=== PATIENT | female | born 1955 | race Caucasian/White ===

== ENCOUNTER 2024-02-28 06:18 | Emergency (ER) | payer BC, OTHER ==
[~2024-02-28] VITALS: Ht 160 cm; Wt 72.6 kg
[2024-02-28] MEDS ORDERED: LISINOPRIL (20MG) 20 MG TABLET ONE (07:03)
[2024-02-28] MEDS ORDERED: KETOROLAC TROMETHAMINE 15 MG/ML VIAL ONE (07:03)
[2024-02-28] MEDS ORDERED: ACETAMINOPHEN ES 500 MG TABLET ONE (07:03)
[2024-02-28] MEDS: KETOROLAC TROMETHAMINE 15 MG/ML VIAL IM ONE (07:13)
[2024-02-28] MEDS: ACETAMINOPHEN ES 500 MG TABLET PO ONE (07:13)
[2024-02-28] MEDS: LISINOPRIL (10MG) 10 MG TABLET PO SCH (09:40)
[2024-02-28 11:15] LABS: BASOPHILS # (AUTO) 0.1 K/uL (0.0-0.2); EOSINOPHILS # (AUTO) 0.1 K/uL (0.0-0.7); EOSINOPHILS % (AUTO) 1.6 % (0.0-6.0); HEMATOCRIT 34 % (33-45); HEMOGLOBIN 11.1 g/dL (11.5-14.8); LYMPHOCYTES % (AUTO) 23.5 % (20.0-44.0); MEAN CORPUSCULAR HEMOGLOBIN 28 PG (26.0-33.0); MEAN CORPUSCULAR HGB CONC 32 g/dl (31.0-36.0); MEAN CORPUSCULAR VOLUME 88 fL (82-100); MONOCYTES # (AUTO) 0.5 K/uL (0.1-1.30); MONOCYTES % (AUTO) 5.3 % (2.0-12.0); NEUTROPHILS # (AUTO) 5.9 K/uL (1.8-8.9); NEUTROPHILS % (AUTO) 68.6 % (43.0-81.0); PLATELET COUNT (AUTO) 441 K/uL (150-450); RED CELL DISTRIBUTION WIDTH 18.7 % (11.5-15.0); WHITE BLOOD COUNT (AUTO) 8.6 K/uL (4.3-11.0)
[2024-02-28 11:28] LABS: ALANINE AMINOTRANSFERASE 19 U/L (12-78); ALBUMIN 2.4 g/dL (3.4-5.0); ALKALINE PHOSPHATASE 119 U/L (46-116); ASPARTATE AMINOTRANSFERASE 28 U/L (15-37); BILIRUBIN,DIRECT 0.2 mg/dL (0.0-0.2); BILIRUBIN,TOTAL 0.5 mg/dL (0.2-1.0); CALCIUM, SERUM 8.8 mg/dL (8.5-10.1); CARBON DIOXIDE 27 mmol/L (21-32); CHLORIDE 105 mmol/L (98-107); CREATININE 1.1 mg/dL (0.6-1.3); GLUCOSE 106 mg/dL (74-106); POTASSIUM 4.6 mmol/L (3.5-5.1); SODIUM SERUM 138 mmol/L (136-145); UREA NITROGEN, BLOOD 19 mg/dL (7-18)
[2024-02-28] MEDS ORDERED: NALOXONE HCL 0.4 MG/ML AMPUL ONE (12:13)
[2024-02-28] MEDS: NALOXONE HCL 0.4 MG/ML AMPUL IV ONE (12:14)
[2024-02-28 12:38] LABS: ALCOHOL, BLOOD < 3 mg/dL (0-10)
[2024-02-28 13:05] LABS: APPEARANCE,URINE CLEAR (CLEAR); BILIRUBIN,URINE NEGATIVE (NEGATIVE); BLOOD, URINE NEGATIVE Ery/uL (NEGATIVE); COLOR,URINE YELLOW (YELLOW); KETONES,URINE NEGATIVE (NEGATIVE); LEUKOCYTE ESTERASE ,URINE NEGATIVE (NEGATIVE); NITRITE, URINE NEGATIVE (NEGATIVE); PH,URINE 5.5 (5.0-8.0); PROTEIN,URINE 2+ mg/dl (NEGATIVE); UGLUCOSE NEGATIVE (NEGATIVE)
[2024-02-28 13:15] LABS: AMPHETAMINE, URINE NEGATIVE (NEGATIVE); BARBITURATE, URINE NEGATIVE (NEGATIVE); BENZODIAZEPINE, URINE NEGATIVE (NEGATIVE); CANNABINOID, URINE NEGATIVE (NEGATIVE); PHENCYCLIDINE SCREEN,URINE NEGATIVE (NEGATIVE)
[2024-02-28 13:21] LABS: COCCAINE, URINE POSITIVE (NEGATIVE); OPIATE, URINE POSITIVE (NEGATIVE)
[2024-02-28 14:01] LABS: ADD URINE CULTURE NO; BACTERIA,URINE 1+ /HPF (None Seen); RBC,URINE 0-2 /HPF (0-2); WBC,URINE NONE SEEN /HPF (0-3)
[2024-02-28 14:02] LABS: SQUAMOUS EPITHELIAL CELL,UR 0-2 /HPF (None Seen)
[2024-02-28] MEDS ORDERED: LISI1TAB55 PO (14:17)
[2024-02-28] MEDS: hydrALAZINE HCL IV 20 MG VIAL IV ONE (14:30)
[2024-02-28 19:09] VITALS: TEMP 98.3
[2024-02-29 00:42] VITALS: BP 141/79; O2SAT 98
== END 2024-02-29 00:42 | disposition home or self-care (01) ==
LOC: ER 06:20
DX: M18.9 Osteoarthritis of first carpometacarpal joint, unspecified (principal); F19.10 Other psychoactive substance abuse, uncomplicated; R41.82 Altered mental status, unspecified; I10 Essential (primary) hypertension; Z60.2 Problems related to living alone; Z59.00 Homelessness unspecified; Z79.899 Other long term (current) drug therapy
CPT/HCPCS: 99285; 96372; 96374; 96375; 73560 ×2; 73030; 73100 ×2; 70450; 85025; 80048; 80076; 81001; 36415; 82962; 80320; 80307; J0360; J2310; J1885; G0480

== ENCOUNTER 2024-03-01 16:41 | Emergency (ER) | payer BC, OTHER ==
[~2024-03-01] VITALS: Ht 152.4 cm; Wt 72.6 kg
[~2024-03-01 16:41] MED LIST: LISI1TAB55 PO
[2024-03-01 18:05] LABS: ALANINE AMINOTRANSFERASE 16 U/L (12-78); ALBUMIN 2.5 g/dL (3.4-5.0); ALCOHOL, BLOOD < 3 mg/dL (0-10); ALKALINE PHOSPHATASE 101 U/L (46-116); ASPARTATE AMINOTRANSFERASE 21 U/L (15-37); BILIRUBIN,DIRECT 0.1 mg/dL (0.0-0.2); BILIRUBIN,TOTAL 0.2 mg/dL (0.2-1.0); CALCIUM, SERUM 8.9 mg/dL (8.5-10.1); CARBON DIOXIDE 25 mmol/L (21-32); CHLORIDE 105 mmol/L (98-107); CREATININE 0.9 mg/dL (0.6-1.3); GLUCOSE 86 mg/dL (74-106); POTASSIUM 4.3 mmol/L (3.5-5.1); SODIUM SERUM 136 mmol/L (136-145); UREA NITROGEN, BLOOD 18 mg/dL (7-18)
[2024-03-01 18:14] LABS: ACETAMINOPHEN 0 ug/ml (10-30); SALICYLATE 2.3 mg/dL (2.8-20.0)
[2024-03-01] MEDS ORDERED: AMLODIPINE BESYLATE 5 MG TABLET ONE (18:31)
[2024-03-01] MEDS: AMLODIPINE BESYLATE 5 MG TABLET PO ONE (18:37)
[2024-03-01 19:40] LABS: APPEARANCE,URINE CLEAR (CLEAR); BILIRUBIN,URINE NEGATIVE (NEGATIVE); BLOOD, URINE NEGATIVE Ery/uL (NEGATIVE); COLOR,URINE YELLOW (YELLOW); KETONES,URINE NEGATIVE (NEGATIVE); LEUKOCYTE ESTERASE ,URINE NEGATIVE (NEGATIVE); NITRITE, URINE NEGATIVE (NEGATIVE); PROTEIN,URINE 1+ mg/dl (NEGATIVE); UGLUCOSE NEGATIVE (NEGATIVE); UROBILINOGEN,URINE 0.2 EU/dL (0.2)
[2024-03-01 19:45] LABS: BASOPHILS # (AUTO) 0.1 K/uL (0.0-0.2); BASOPHILS % (AUTO) 1.1 % (0.0-2.0); EOSINOPHILS # (AUTO) 0.3 K/uL (0.0-0.7); EOSINOPHILS % (AUTO) 3.8 % (0.0-6.0); HEMATOCRIT 32 % (33-45); HEMOGLOBIN 10.5 g/dL (11.5-14.8); LYMPHOCYTES # (AUTO) 2.1 K/uL (0.8-4.8); LYMPHOCYTES % (AUTO) 31.2 % (20.0-44.0); MEAN CORPUSCULAR HEMOGLOBIN 28 PG (26.0-33.0); MEAN CORPUSCULAR HGB CONC 33 g/dl (31.0-36.0); MEAN CORPUSCULAR VOLUME 87 fL (82-100); MONOCYTES # (AUTO) 0.6 K/uL (0.1-1.30); MONOCYTES % (AUTO) 8.8 % (2.0-12.0); NEUTROPHILS # (AUTO) 3.7 K/uL (1.8-8.9); NEUTROPHILS % (AUTO) 55.1 % (43.0-81.0); PLATELET COUNT (AUTO) 373 K/uL (150-450); RED BLOOD CELL COUNT(AUTO) 3.72 MIL/uL (4.0-5.2); RED CELL DISTRIBUTION WIDTH 18.5 % (11.5-15.0); WHITE BLOOD COUNT (AUTO) 6.7 K/uL (4.3-11.0)
[2024-03-01 19:47] LABS: ADD URINE CULTURE YES; BACTERIA,URINE 3+ /HPF (None Seen); RBC,URINE 0-2 /HPF (0-2); SQUAMOUS EPITHELIAL CELL,UR 0-2 /HPF (None Seen); WBC,URINE 0-2 /HPF (0-3)
[2024-03-01 19:53] LABS: AMPHETAMINE, URINE NEGATIVE (NEGATIVE); BARBITURATE, URINE NEGATIVE (NEGATIVE); BENZODIAZEPINE, URINE NEGATIVE (NEGATIVE); CANNABINOID, URINE NEGATIVE (NEGATIVE); OPIATE, URINE NEGATIVE (NEGATIVE); PHENCYCLIDINE SCREEN,URINE NEGATIVE (NEGATIVE)
[2024-03-01 19:54] LABS: COCCAINE, URINE POSITIVE (NEGATIVE)
[2024-03-02] MEDS: AMLODIPINE BESYLATE 5 MG TABLET PO ONE (14:07)
[2024-03-02] MEDS ORDERED: AMLODIPINE BESYLATE 10 MG TABLET ONE (14:08)
[2024-03-02 14:12] VITALS: BP 159/97; TEMP 98.2; O2SAT 97
== END 2024-03-02 14:33 ==
LOC: ER 16:46
DX: R45.851 Suicidal ideations (principal); F14.10 Cocaine abuse, uncomplicated; I10 Essential (primary) hypertension; M06.9 Rheumatoid arthritis, unspecified; G89.29 Other chronic pain; Z60.2 Problems related to living alone; Z20.822 Contact with and (suspected) exposure to COVID-19
CPT/HCPCS: 36415; 80048-TC; 80076-TC; 81001; 85025-TC; 87086-TC; G0480

== ENCOUNTER 2024-05-03 20:31 | Inpatient (IN) | payer BC, MEDICAID, OTHER ==
[~2024-05-03] VITALS: Ht 160 cm; Wt 89.8 kg
[2024-05-03 21:55] LABS: BASOPHILS % (AUTO) 0.7 % (0.0-2.0); EOSINOPHILS # (AUTO) 0.1 K/uL (0.0-0.7); EOSINOPHILS % (AUTO) 1.8 % (0.0-6.0); HEMATOCRIT 30 % (33-45); LYMPHOCYTES # (AUTO) 1.9 K/uL (0.8-4.8); LYMPHOCYTES % (AUTO) 25.9 % (20.0-44.0); MEAN CORPUSCULAR HEMOGLOBIN 29 PG (26.0-33.0); MEAN CORPUSCULAR HGB CONC 33 g/dl (31.0-36.0); MEAN CORPUSCULAR VOLUME 87 fL (82-100); MONOCYTES # (AUTO) 0.4 K/uL (0.1-1.30); NEUTROPHILS # (AUTO) 4.9 K/uL (1.8-8.9); NEUTROPHILS % (AUTO) 65.6 % (43.0-81.0); PLATELET COUNT (AUTO) 343 K/uL (150-450); RED BLOOD CELL COUNT(AUTO) 3.45 MIL/uL (4.0-5.2); RED CELL DISTRIBUTION WIDTH 17.8 % (11.5-15.0); WHITE BLOOD COUNT (AUTO) 7.4 K/uL (4.3-11.0)
[2024-05-03 22:05] LABS: CALCIUM, SERUM 9.1 mg/dL (8.5-10.1); CARBON DIOXIDE 23 mmol/L (21-32); CHLORIDE 107 mmol/L (98-107); GLUCOSE 93 mg/dL (74-106); POTASSIUM 3.5 mmol/L (3.5-5.1); SODIUM SERUM 141 mmol/L (136-145); UREA NITROGEN, BLOOD 13 mg/dL (7-18)
[2024-05-03 22:07] LABS: INR 1.13 (0.91-1.10); PARTIAL THROMBOPLASTIN TIME 28.3 SEC (24.3-34.3); PROTHROMBIN TIME 11.9 SECS (9.2-11.1)
[2024-05-03 22:19] LABS: ALANINE AMINOTRANSFERASE 15 U/L (12-78); ALBUMIN 2.4 g/dL (3.4-5.0); ALKALINE PHOSPHATASE 148 U/L (46-116); ASPARTATE AMINOTRANSFERASE 20 U/L (15-37); BILIRUBIN,DIRECT 0.2 mg/dL (0.0-0.2); BILIRUBIN,TOTAL 0.4 mg/dL (0.2-1.0); NT-PRO BNP 15722 pg/mL (0-125); TOTAL PROTEIN, SERUM 7.6 g/dL (6.4-8.2)
[2024-05-03] MEDS ORDERED: FUROSEMIDE 40 MG/4 ML VIAL ONE (22:44)
[2024-05-03] MEDS ORDERED: ASPIRIN 325 MG TABLET ONE (22:44)
[2024-05-03] MEDS ORDERED: hydrALAZINE HCL IV 20 MG VIAL ONE (22:44)
[2024-05-03] MEDS: hydrALAZINE HCL IV 20 MG VIAL IV ONE (22:46)
[2024-05-03] MEDS: FUROSEMIDE 40 MG/4 ML VIAL IV ONE (22:46)
[2024-05-03] MEDS: ASPIRIN 325 MG TABLET PO ONE (22:46)
[2024-05-04] MEDS ORDERED: ONDANSETRON HCL/PF 4 MG/2 ML VIAL IVP PRN
[2024-05-04] MEDS ORDERED: MAG HYDROX/AL HYDROX/SIMETH 30 ML UDC PO PRN
[2024-05-04] MEDS ORDERED: MAGNESIUM HYDROXIDE 30 ML UDC PO PRN
[2024-05-04] MEDS ORDERED: ENOXAPARIN SODIUM 40 MG/0.4 ML DISP.SYRIN SQ SCH
[2024-05-04] MEDS: hydrALAZINE HCL IV 20 MG VIAL IV PRN (01:09)
[2024-05-04] MEDS: hydrALAZINE HCL IV 20 MG VIAL IV ONE (01:30)
[2024-05-04 04:00] VITALS: BP 138/82; TEMP 98.2; O2SAT 97
[2024-05-04] MEDS: HYDROCODONE/APAP 5/325MG TABLET PO PRN (06:41)
[2024-05-04 07:03] LABS: BASOPHILS # (AUTO) 0.1 K/uL (0.0-0.2); EOSINOPHILS # (AUTO) 0.2 K/uL (0.0-0.7); EOSINOPHILS % (AUTO) 3.4 % (0.0-6.0); HEMATOCRIT 29 % (33-45); HEMOGLOBIN 9.6 g/dL (11.5-14.8); LYMPHOCYTES # (AUTO) 1.4 K/uL (0.8-4.8); LYMPHOCYTES % (AUTO) 23.1 % (20.0-44.0); MEAN CORPUSCULAR HEMOGLOBIN 29 PG (26.0-33.0); MEAN CORPUSCULAR HGB CONC 33 g/dl (31.0-36.0); MEAN CORPUSCULAR VOLUME 86 fL (82-100); MONOCYTES # (AUTO) 0.5 K/uL (0.1-1.30); MONOCYTES % (AUTO) 8.6 % (2.0-12.0); NEUTROPHILS # (AUTO) 3.9 K/uL (1.8-8.9); NEUTROPHILS % (AUTO) 63.9 % (43.0-81.0); PLATELET COUNT (AUTO) 340 K/uL (150-450); RED BLOOD CELL COUNT(AUTO) 3.34 MIL/uL (4.0-5.2); RED CELL DISTRIBUTION WIDTH 17.6 % (11.5-15.0)
[2024-05-04 07:06] LABS: CALCIUM, SERUM 8.9 mg/dL (8.5-10.1); CREATININE 0.9 mg/dL (0.6-1.3); MAGNESIUM 2.1 mg/dL (1.8-2.4); PHOSPHORUS 3.6 mg/dL (2.5-4.9); POTASSIUM 3.2 mmol/L (3.5-5.1)
[2024-05-04] MEDS ORDERED: METO25TA4 PO (07:55)
[2024-05-04] MEDS ORDERED: ARIP10TA9 PO (07:55)
[2024-05-04] MEDS ORDERED: ASPI-1420 PO (07:55)
[2024-05-04] MEDS ORDERED: CYCL10TA9 PO (07:55)
[2024-05-04] MEDS ORDERED: ESCI20TA PO (07:55)
[2024-05-04] MEDS ORDERED: SPIR25TA6 PO (07:55)
[2024-05-04] MEDS ORDERED: SIMV-46 PO (07:55)
[2024-05-04] MEDS ORDERED: SERT100T12 PO (07:55)
[2024-05-04] MEDS ORDERED: LABE200T5 PO (07:55)
[2024-05-04] MEDS ORDERED: FURO40TA5 PO (07:55)
[2024-05-04 08:00] VITALS: BP 167/99; TEMP 97.7; O2SAT 97
[2024-05-04] MEDS: ASPIRIN 81 MG TAB.CHEW PO SCH (08:19)
[2024-05-04] MEDS: HYDROCHLOROTHIAZIDE 25 MG TABLET PO SCH (08:19)
[2024-05-04] MEDS: NICOTINE PATCH (7MG) 7 MG PATCH.TD24 TD SCH (08:19)
[2024-05-04] MEDS: LISINOPRIL (20MG) 20 MG TABLET PO SCH (08:19)
[2024-05-04] MEDS: FUROSEMIDE 40 MG/4 ML VIAL IV SCH (08:19)
[2024-05-04] MEDS: PANTOPRAZOLE 40 MG VIAL IV SCH (08:20)
[2024-05-04] MEDS: PROSOURCE / PROSTAT (PYXIS) 30 ML UDC PO SCH (09:45)
[2024-05-04] MEDS: POTASSIUM CHLORIDE 20 MEQ TAB.PRT.SR PO SCH (10:24)
[2024-05-04 12:00] VITALS: BP 156/92; TEMP 98.4; O2SAT 97
[2024-05-04] MEDS: ENOXAPARIN SODIUM 40 MG/0.4 ML DISP.SYRIN SQ SCH (12:53)
[2024-05-04 16:00] VITALS: BP 157/89; TEMP 98.4; O2SAT 95
[2024-05-04 20:00] VITALS: BP 167/94; TEMP 98.4; O2SAT 98
[2024-05-05] VITALS (7 sets, daily range): BP systolic 137–167; BP diastolic 63–96; TEMP 98.1–98.5; O2SAT 96–99
[2024-05-05] MEDS: hydrALAZINE HCL IV 20 MG VIAL IV PRN (00:47)
[2024-05-05 07:18] LABS: BASOPHILS # (AUTO) 0.1 K/uL (0.0-0.2); BASOPHILS % (AUTO) 1.4 % (0.0-2.0); EOSINOPHILS # (AUTO) 0.1 K/uL (0.0-0.7); EOSINOPHILS % (AUTO) 1.9 % (0.0-6.0); HEMATOCRIT 32 % (33-45); HEMOGLOBIN 10.6 g/dL (11.5-14.8); LYMPHOCYTES # (AUTO) 1.6 K/uL (0.8-4.8); LYMPHOCYTES % (AUTO) 20.6 % (20.0-44.0); MEAN CORPUSCULAR HEMOGLOBIN 29 PG (26.0-33.0); MEAN CORPUSCULAR HGB CONC 33 g/dl (31.0-36.0); MEAN CORPUSCULAR VOLUME 87 fL (82-100); MONOCYTES # (AUTO) 0.6 K/uL (0.1-1.30); MONOCYTES % (AUTO) 7.4 % (2.0-12.0); NEUTROPHILS # (AUTO) 5.2 K/uL (1.8-8.9); NEUTROPHILS % (AUTO) 68.7 % (43.0-81.0); PLATELET COUNT (AUTO) 371 K/uL (150-450); RED BLOOD CELL COUNT(AUTO) 3.73 MIL/uL (4.0-5.2); WHITE BLOOD COUNT (AUTO) 7.5 K/uL (4.3-11.0)
[2024-05-05 07:19] LABS: CALCIUM, SERUM 9.5 mg/dL (8.5-10.1); CREATININE 1.1 mg/dL (0.6-1.3); POTASSIUM 3.6 mmol/L (3.5-5.1)
[2024-05-05] MEDS: SERTRALINE HCL 50 MG TABLET PO SCH (21:31)
[2024-05-05] MEDS: ACETAMINOPHEN 325 MG TABLET PO PRN (21:32)
[2024-05-05] MEDS: SIMVASTATIN 20 MG TABLET PO SCH (21:32)
[2024-05-05] MEDS: CYCLOBENZAPRINE 10 MG TABLET PO PRN (22:51)
[2024-05-06] VITALS: BP 137/83; TEMP 95.9; O2SAT 96
[2024-05-06] MEDS: DILTIAZEM HCL 25 MG IV IV ONE (00:34)
[2024-05-06 04:00] VITALS: BP 130/73; TEMP 98.2; O2SAT 96
[2024-05-06 07:06] LABS: BASOPHILS % (AUTO) 0.7 % (0.0-2.0); EOSINOPHILS # (AUTO) 0.2 K/uL (0.0-0.7); EOSINOPHILS % (AUTO) 3.5 % (0.0-6.0); HEMATOCRIT 31 % (33-45); HEMOGLOBIN 9.9 g/dL (11.5-14.8); LYMPHOCYTES # (AUTO) 1.7 K/uL (0.8-4.8); LYMPHOCYTES % (AUTO) 25.7 % (20.0-44.0); MEAN CORPUSCULAR HEMOGLOBIN 28 PG (26.0-33.0); MEAN CORPUSCULAR HGB CONC 33 g/dl (31.0-36.0); MEAN CORPUSCULAR VOLUME 87 fL (82-100); MONOCYTES # (AUTO) 0.7 K/uL (0.1-1.30); MONOCYTES % (AUTO) 10.1 % (2.0-12.0); NEUTROPHILS # (AUTO) 3.9 K/uL (1.8-8.9); PLATELET COUNT (AUTO) 355 K/uL (150-450); RED BLOOD CELL COUNT(AUTO) 3.51 MIL/uL (4.0-5.2); RED CELL DISTRIBUTION WIDTH 17.6 % (11.5-15.0); WHITE BLOOD COUNT (AUTO) 6.6 K/uL (4.3-11.0)
[2024-05-06 07:08] LABS: CALCIUM, SERUM 8.7 mg/dL (8.5-10.1); CREATININE 1.1 mg/dL (0.6-1.3); POTASSIUM 3.7 mmol/L (3.5-5.1)
[2024-05-06 08:00] VITALS: BP 146/64; TEMP 98.6; O2SAT 97
[2024-05-06] MEDS ORDERED: ASPIRIN EC 81 MG TABLET.DR PO SCH (09:00)
[2024-05-06] MEDS: ESCITALOPRAM OXALATE (10 MG) 10 MG TABLET PO SCH (09:19)
[2024-05-06] MEDS: METOPROLOL SUCCINATE 25 MG TAB.SR.24H PO SCH (09:19)
[2024-05-06] MEDS: SPIRONOLACTONE 25 MG TABLET PO SCH (09:19)
[2024-05-06] MEDS: PANTOPRAZOLE 40 MG TABLET.DR PO SCH (09:19)
[2024-05-06] MEDS: ARIPIPRAZOLE 5 MG TABLET PO SCH (09:20)
[2024-05-06 12:00] VITALS: BP 135/84; TEMP 97.9; O2SAT 97
[2024-05-06] MEDS: METOPROLOL TARTRATE INJ 5 MG/5 ML AMPUL IVP PRN (15:45)
[2024-05-06] MEDS ORDERED: NITROGLYCERIN 0.4 MG/TAB BOTTLE ONE (15:47)
[2024-05-06] MEDS ORDERED: METOPROLOL TARTRATE INJ 5 MG/5 ML AMPUL ONE (15:47)
[2024-05-06] MEDS ORDERED: IOHEXOL-350 100 ML VIAL IV ONE (15:49)
[2024-05-06] MEDS ORDERED: CT SWABBABLE VALVE TRANS SET 1 EA INFUS.SET MC ONE (15:49)
[2024-05-06] MEDS ORDERED: IV NS 0.9% 250 ML IV ONE (15:49)
[2024-05-06] MEDS: NITROGLYCERIN 0.4 MG/TAB BOTTLE SL ONE (15:57)
[2024-05-06 16:00] VITALS: BP 144/65; TEMP 97.6; O2SAT 97
[2024-05-06 20:00] VITALS: BP 153/80; TEMP 98.4; O2SAT 96
[2024-05-07] VITALS (7 sets, daily range): BP systolic 115–160; BP diastolic 57–84; TEMP 97.8–98.5; O2SAT 95–99
[2024-05-07 06:47] LABS: BASOPHILS # (AUTO) 0.1 K/uL (0.0-0.2); BASOPHILS % (AUTO) 0.9 % (0.0-2.0); EOSINOPHILS # (AUTO) 0.2 K/uL (0.0-0.7); EOSINOPHILS % (AUTO) 3.6 % (0.0-6.0); HEMATOCRIT 31 % (33-45); HEMOGLOBIN 10.1 g/dL (11.5-14.8); LYMPHOCYTES # (AUTO) 1.5 K/uL (0.8-4.8); LYMPHOCYTES % (AUTO) 22.6 % (20.0-44.0); MEAN CORPUSCULAR HEMOGLOBIN 28 PG (26.0-33.0); MEAN CORPUSCULAR HGB CONC 33 g/dl (31.0-36.0); MEAN CORPUSCULAR VOLUME 87 fL (82-100); MONOCYTES # (AUTO) 0.5 K/uL (0.1-1.30); MONOCYTES % (AUTO) 7.9 % (2.0-12.0); NEUTROPHILS # (AUTO) 4.4 K/uL (1.8-8.9); PLATELET COUNT (AUTO) 353 K/uL (150-450); RED BLOOD CELL COUNT(AUTO) 3.54 MIL/uL (4.0-5.2); RED CELL DISTRIBUTION WIDTH 17.8 % (11.5-15.0); WHITE BLOOD COUNT (AUTO) 6.7 K/uL (4.3-11.0)
[2024-05-07 07:09] LABS: CALCIUM, SERUM 8.5 mg/dL (8.5-10.1); CREATININE 1.1 mg/dL (0.6-1.3); POTASSIUM 3.7 mmol/L (3.5-5.1)
[2024-05-07] MEDS: hydrALAZINE HCL 50 MG TABLET PO SCH (10:42)
[2024-05-07] MEDS: NITROGLYCERIN 30 GM TUBE TP SCH (10:43)
[2024-05-08] VITALS: BP 134/66; TEMP 98.4; O2SAT 94
[2024-05-08 04:00] VITALS: BP 130/65; TEMP 97.7; O2SAT 94
[2024-05-08 07:05] LABS: BASOPHILS # (AUTO) 0.1 K/uL (0.0-0.2); BASOPHILS % (AUTO) 0.8 % (0.0-2.0); EOSINOPHILS # (AUTO) 0.2 K/uL (0.0-0.7); EOSINOPHILS % (AUTO) 2.6 % (0.0-6.0); HEMATOCRIT 32 % (33-45); HEMOGLOBIN 10.3 g/dL (11.5-14.8); LYMPHOCYTES # (AUTO) 1.5 K/uL (0.8-4.8); LYMPHOCYTES % (AUTO) 20.2 % (20.0-44.0); MEAN CORPUSCULAR HEMOGLOBIN 28 PG (26.0-33.0); MEAN CORPUSCULAR HGB CONC 32 g/dl (31.0-36.0); MEAN CORPUSCULAR VOLUME 87 fL (82-100); MONOCYTES # (AUTO) 0.7 K/uL (0.1-1.30); MONOCYTES % (AUTO) 9.3 % (2.0-12.0); NEUTROPHILS # (AUTO) 4.8 K/uL (1.8-8.9); NEUTROPHILS % (AUTO) 67.1 % (43.0-81.0); PLATELET COUNT (AUTO) 395 K/uL (150-450); RED BLOOD CELL COUNT(AUTO) 3.68 MIL/uL (4.0-5.2); RED CELL DISTRIBUTION WIDTH 17.4 % (11.5-15.0); WHITE BLOOD COUNT (AUTO) 7.2 K/uL (4.3-11.0)
[2024-05-08 07:40] LABS: CALCIUM, SERUM 9.5 mg/dL (8.5-10.1); CREATININE 1.4 mg/dL (0.6-1.3); POTASSIUM 3.3 mmol/L (3.5-5.1)
[2024-05-08 08:00] VITALS: BP 143/77; TEMP 97.3; O2SAT 100
[2024-05-08] MEDS: POTASSIUM CHLORIDE 20 MEQ TAB.PRT.SR PO ONE (09:51)
[2024-05-08] MEDS: ISOSORBIDE DINITRATE (20MG) 20 MG TABLET PO SCH (10:07)
[2024-05-08 12:00] VITALS: BP 115/57; TEMP 98.2; O2SAT 97
[2024-05-08 16:00] VITALS: BP 110/60; TEMP 97.3; O2SAT 96
[2024-05-08 20:00] VITALS: BP 104/52; TEMP 98.4
[2024-05-09 05:00] VITALS: BP 130/58; TEMP 98.9; O2SAT 98
[2024-05-09 07:02] LABS: BASOPHILS # (AUTO) 0.1 K/uL (0.0-0.2); BASOPHILS % (AUTO) 1.1 % (0.0-2.0); EOSINOPHILS # (AUTO) 0.2 K/uL (0.0-0.7); EOSINOPHILS % (AUTO) 2.9 % (0.0-6.0); HEMATOCRIT 31 % (33-45); LYMPHOCYTES # (AUTO) 1.3 K/uL (0.8-4.8); LYMPHOCYTES % (AUTO) 20.1 % (20.0-44.0); MEAN CORPUSCULAR HEMOGLOBIN 29 PG (26.0-33.0); MEAN CORPUSCULAR HGB CONC 33 g/dl (31.0-36.0); MEAN CORPUSCULAR VOLUME 87 fL (82-100); MONOCYTES # (AUTO) 0.7 K/uL (0.1-1.30); MONOCYTES % (AUTO) 10.2 % (2.0-12.0); NEUTROPHILS # (AUTO) 4.3 K/uL (1.8-8.9); NEUTROPHILS % (AUTO) 65.7 % (43.0-81.0); PLATELET COUNT (AUTO) 402 K/uL (150-450); RED CELL DISTRIBUTION WIDTH 17.3 % (11.5-15.0); WHITE BLOOD COUNT (AUTO) 6.5 K/uL (4.3-11.0)
[2024-05-09 07:18] LABS: CALCIUM, SERUM 8.5 mg/dL (8.5-10.1); CREATININE 1.5 mg/dL (0.6-1.3); POTASSIUM 4.2 mmol/L (3.5-5.1)
[2024-05-09 08:00] VITALS: BP 140/62; TEMP 98.2; O2SAT 95
[2024-05-09] MEDS: LIDOCAINE 5% (PATCH) 1 EA PATCH TP SCH (09:00)
[2024-05-09] MEDS ORDERED: ASPI-1169 PO ×2 (09:48→10:20)
[2024-05-09] MEDS ORDERED: NICO-760 TD (09:48)
[2024-05-09] MEDS ORDERED: ISOS20TA8 PO ×2 (09:48→10:22)
[2024-05-09] MEDS ORDERED: LIDO30AD10 TP (09:48)
[2024-05-09] MEDS ORDERED: Prosource PO (09:48)
[2024-05-09] MEDS ORDERED: ENOX40DI SQ (09:48)
[2024-05-09] MEDS ORDERED: HYDR-4077 PO (09:48)
[2024-05-09 13:08] VITALS: BP 143/77; TEMP 97.3; O2SAT 100
[2024-05-09 18:00] VITALS: BP 144/68; TEMP 98; O2SAT 96
[2024-05-09 21:00] VITALS: BP 129/59; TEMP 98.6; O2SAT 100
[2024-05-10 05:00] VITALS: BP 121/54; TEMP 98.1; O2SAT 100
[2024-05-10 06:54] LABS: BASOPHILS # (AUTO) 0.1 K/uL (0.0-0.2); EOSINOPHILS # (AUTO) 0.2 K/uL (0.0-0.7); EOSINOPHILS % (AUTO) 3.4 % (0.0-6.0); HEMATOCRIT 31 % (33-45); LYMPHOCYTES # (AUTO) 1.5 K/uL (0.8-4.8); LYMPHOCYTES % (AUTO) 23.6 % (20.0-44.0); MEAN CORPUSCULAR HEMOGLOBIN 29 PG (26.0-33.0); MEAN CORPUSCULAR HGB CONC 33 g/dl (31.0-36.0); MEAN CORPUSCULAR VOLUME 87 fL (82-100); MONOCYTES # (AUTO) 0.6 K/uL (0.1-1.30); MONOCYTES % (AUTO) 9.8 % (2.0-12.0); NEUTROPHILS % (AUTO) 62.2 % (43.0-81.0); PLATELET COUNT (AUTO) 409 K/uL (150-450); RED BLOOD CELL COUNT(AUTO) 3.52 MIL/uL (4.0-5.2); RED CELL DISTRIBUTION WIDTH 17.3 % (11.5-15.0); WHITE BLOOD COUNT (AUTO) 6.4 K/uL (4.3-11.0)
[2024-05-10 07:06] LABS: CALCIUM, SERUM 9.6 mg/dL (8.5-10.1); CREATININE 1.2 mg/dL (0.6-1.3); POTASSIUM 3.9 mmol/L (3.5-5.1)
[2024-05-10 08:00] VITALS: BP 138/55; TEMP 98.6; O2SAT 94
[2024-05-10 12:00] VITALS: BP 137/71; TEMP 98.6; O2SAT 96
[2024-05-10 16:00] VITALS: BP 139/62; TEMP 98.4; O2SAT 94
[2024-05-10 17:11] VITALS: BP 139/62
== END 2024-05-10 18:55 | DRG 280 ==
LOC: ER 20:34 → TELE1 05-04 00:43 → MEDSG1 05-08 10:07
PROVIDERS: ATTEND Nurse Practitioner Acute Care
DX: I11.0 Hypertensive heart disease with heart failure (principal); E43 Unspecified severe protein-calorie malnutrition; I21.A1 Myocardial infarction type 2; I50.43 Acute on chronic combined systolic (congestive) and diastolic (congestive) heart failure; E88.09 Other disorders of plasma-protein metabolism, not elsewhere classified; E66.9 Obesity, unspecified; F31.9 Bipolar disorder, unspecified; I27.29 Other secondary pulmonary hypertension; I48.91 Unspecified atrial fibrillation; M06.9 Rheumatoid arthritis, unspecified; M19.90 Unspecified osteoarthritis, unspecified site; Z71.6 Tobacco abuse counseling; D63.8 Anemia in other chronic diseases classified elsewhere; F17.210 Nicotine dependence, cigarettes, uncomplicated; F19.11 Other psychoactive substance abuse, in remission; Z68.35 Body mass index [BMI] 35.0-35.9, adult
CPT/HCPCS: 36415; 71045-TC; 75574; 80048-TC; 80061-TC; 80076-TC; 83735-TC; 83880; 84100-TC; 84484-TC; 85025-TC; 85730-TC; 93307-TC; 93971-TC; 97110-TC; 97116-TC; 97530-TC; 97535-TC; C9113; G0378; J0360; J1650; J1940; J3490; J7030; J7050; Q9967